=== PATIENT | male | born 1990 | race Hispanic/Latino ===

== ENCOUNTER 2020-10-02 11:54 | Day surgery (SDC) | payer BC ==
[2020-09-30 15:39] VITALS: BMI 40.7
[2020-10-02] MEDS ORDERED: Bacitracin Zinc Ointment 30 gm TUBE ONE (14:23)
[2020-10-02] MEDS ORDERED: Bupivacaine PF 0.5% 30 ML VIAL ONE (14:23)
[2020-10-02] MEDS ORDERED: Sodium Chloride 0.9% 10 ML ONE (14:35)
[2020-10-02] MEDS ORDERED: Fentanyl 100 MCG/2 ML VIAL ONE ×2 (15:01→16:23)
[2020-10-02] MEDS ORDERED: Midazolam HCl 2 mg/2 ml Vial ONE (15:01)
--- NOTE | 2020-10-02 15:56 | RAD ---
Right hand 2 views intraoperative fluoroscopy HISTORY: Fracture. FINDINGS: Intraoperative fluoroscopy was provided for internal fixation as performed by Dr. Vivas. Spot fluoroscopic images show 2 long wires to transfix the base of the first metacarpal, in anatomic alignment. Fluoroscopy time 34 seconds.
[2020-10-02] MEDS ORDERED: Ketorolac Tromethamine 30 MG/ML VIAL ONE (15:58)
--- NOTE | 2020-10-04 10:47 | OP ---
DATE OF PROCEDURE: 10/02/2020 PREOPERATIVE DIAGNOSIS: Right displaced metacarpal base fracture/Dacosta fracture. POSTOPERATIVE DIAGNOSIS: Right displaced metacarpal base fracture/Dacosta fracture, displaced in both planes with moderate angulation, approximately 20 degrees and displaced in 60%. PROCEDURES PERFORMED: 1. Closed reduction with pinning x2, metacarpal fracture, thumb base/Dacosta's fracture. 2. C-arm supervision. 3. Application of short-arm splint. TOURNIQUET TIME: None. ANESTHESIA: General LMA technique augmented by 20 mL of 0.5% Marcaine metacarpal block with 10 given before the procedure and 10 given after without epinephrine. INDICATION: The patient with fracture acutely that was displaced in the clinic over 60% in both planes. Angulation seen the reduction and at least pinning if not open reduction and internal fixation was indicated. DESCRIPTION OF PROCEDURE: After successful anesthesia listed above, the limb was prepped and draped. C-arm brought to the field. We performed a closed reduction, we knew we could achieve near anatomic position. We then held the thumb in appropriate in-line traction, and with pressure on the distal fragment, we were able to reduce it anatomically in the sagittal plane, only 10% displaced in frontal plane with excellent length and the joint was well aligned. We then passed two K-wires 0.6 obliquely from dorsal radial to volar ulna. We performed radiographs that showed that it was in anatomic position. We then gave the last 10 mL of 0.5% Marcaine, cut the wires almost flush with the skin, but bent with some protruding and then placed him in a bulky dressing with bacitracin, Adaptic, 4x4 with Kerlix, and a short-arm splint. He left the operating room with a pink digit. No evidence of anesthetic or operative complication. Job ID: [id number]
== END 2020-10-02 18:10 | disposition home or self-care (01) ==
LOC: SDC 11:54
PROVIDERS: ATTEND Orthopaedic Surgery Hand Surgery
PROC: 0PSP04Z Reposition Right Metacarpal with Internal Fixation Device, Open Approach (ICD-10-PCS; principal; 2020-10-02)
DX: S62.211A Bennett's fracture, right hand, initial encounter for closed fracture (principal)
CPT/HCPCS: 76000; J0690; J1885; J2250; J3010; J3490; S0020